=== PATIENT | female | born 1950 | race Native Hawaiian/Other Pacific Islander ===

== ENCOUNTER → 2017-03-01 | Outpatient (CLI) | payer OTHER ==
[~2017-03-01] MED LIST: ACET-24 PO; ASPEC81 PO; ASPI81TA28 PO; BRIM0.1S OPB; CLR10 PO; CYAN100020 PO; DOXYCYCLINE PO; GLUC1CAP35 PO; IRBESARTAN PO; KETO0.5S33 OP; LUTE40CA2 PO; LYSI1TAB12 PO; METROGEL TOP; MULT-506 PO; NABU500T3 PO; OMEG10007 PO; ONDA8TAB6 PO; PRD/25 PO; PRED1SUS3 OPR; RXC5 PO; SENNTAB23 PO; SIMV10TA2 PO; [UNRECOGNIZED DRUG - CODE] TOP
[2017-03-01 16:45] LABS: BASO % 0.5 %; BASO ABS # 0.03 K/uL (0-0.2); COMPLETE YES; EOS % 1.9 %; HEMATOCRIT 37.1 % (37-47); IG% 0.2 %; LYMPH % 15.2 %; LYMPH ABS # 0.94 K/uL (1.2-3.4); MEAN CELL VOLUME 91.6 fL (80-100); MEAN CORPUSCULAR HEMOGLOBIN 29.6 pg (25-34); MEAN CORPUSCULAR HGB CONC 32.3 g/dl (32-36); MEAN PLATELET VOLUME 9.8 fL (7.4-10.4); MONO % 6.6 %; NEUT % 75.6 %; PLATELET COUNT 288 K/uL (130-400); RED BLOOD COUNT 4.05 M/uL (4.2-5.4); WHITE BLOOD COUNT 6.18 K/uL (4.8-10.8)
[2017-03-01 18:58] LABS: SYNOVIAL FLUID COLOR RED
[2017-03-01 18:59] LABS: SYNOVIAL FLUID APPEARANCE BLOODY; SYNOVIAL FLUID MONONUC RELAT 33.4 %; SYNOVIAL FLUID POLYNUC RELAT 66.6 %
== END | disposition home or self-care (01) ==
LOC: C.LAB 14:44
PROVIDERS: ATTEND Physician Assistant Medical
DX: M00.062 Staphylococcal arthritis, left knee (principal)

== ENCOUNTER 2017-04-30 10:16 | Inpatient (IN) | payer OTHER ==
[2017-04-05 11:38] VITALS: BMI 23.0
--- NOTE | 2017-04-26 18:49 | History and Physical ---
History & Physical Date Apr 26, 2017. Chief Complaint LEFT KNEE PAIN History of Present Illness The patient is a 66 year old female with complaints of left knee pain for years. Has tried nsaids and PT. Also had injections with no relief. Pt cant do adls and is ready for left tka. Additional History Hepatic Disease: No Endocrine Disorder: No Kidney Disease: No Hypertension: Yes Heart Disease: No Bleeding Tendencies: No Infectious Diseases: No Allergies Coded Allergies: No Known Allergies (Unverified , 04/05/17) Home Medications Scheduled Aspirin (Aspirin Ec), 81 MG PO QAM Brimonidine Tartrate (Alphagan P Oph), 1 DROP OPB UD Cyanocobalamin (Vitamin B12), 1 TAB PO QAM Fish Oil (Keene-3), 1 CAP PO QAM Dawqgzhslix-Cssucrlbeto-Veo C- (Glucosamine Chondroitin), 1 CAP PO QAM Ketorolac Tromethamine (Ophth) (Acular Oph), 1 DROP OP BID Loratadine (Claritin), 10 MG PO QAM Lutein (Cvs Lutein), 1 CAP PO QAM Lysine HCl (Lysine), 1 TAB PO QAM Multivitamin (Multivitamin), 1 TAB PO QAM Nabumetone (Relafen), 500 MG PO BID Prednisolone Acetate (Ophth) (Pred Forte 1% Oph), 1 DROPS OPR BID Prednisone (Prednisone), 2.5 MG PO QAM Sennosides-Docusate Sodium (Stool Softener), 1 TAB PO DAILY Simvastatin (Zocor), 10 MG PO QPM Tretinoin (Retin-A), 1 DOSE TOP DAILY [Doxycycline], 50 MG PO DAILY [Irbesartan], 75 MG PO QAM [Metrogel], 1 DOSE TOP DAILY Physical Examination Skin: warm/dry, no rash Eyes: normal inspection, EOMI, sclerae normal ENT: normal ENT inspection, pharynx normal Head: normocephalic, atraumatic Neck: supple, no adenopathy, trachea midline Respiratory/Chest: lungs clear, normal breath sounds, no respiratory distress Cardiovascular: regular rate, rhythm, no edema, no murmur Abdomen / GI: normal bowel sounds, non tender Back: normal inspection Extremities: normal inspection, normal range of motion, + pertinent finding ( left knee is painful with rom. Pt has severe deformity and pain along joint line) Neurologic/Psych: no motor/sensory deficits, alert, normal reflexes, oriented x 3 Diagnosis DJD LEFT KNEE Plan of Treatment PLAN IS FOR LEFT TKA, HOME PT, ASA FOR DVT PROPHYLAXIS.
[2017-04-30] VITALS (7 sets, daily range): BP systolic 83–146; BP diastolic 45–77; PULSE 60–81; TEMP 36.4–36.8; O2SAT 97–100; Ht 162.6 cm; Wt 61.0 kg
[~2017-04-30] VITALS: Ht 162.6 cm; Wt 61.0 kg
[2017-04-30] MEDS: TRANEXAMIC ACID INJ 1,000 MG in SODIUM CHLORIDE 0.9% 100ML 100 ML IV SCH ×2 (06:00→06:30)
[~2017-04-30 10:16] MED LIST changes: -ACET-24 PO; +ACETAMINOPHEN 500 MG TAB PO SCH; -ASPEC81 PO; +BUPIVACAINE 0.25% 30 ML VIAL ONE; +BUPIVACAINE 0.5 % 5 MG/1 ML PF 10ML VIAL ONE; +CEFAZOLIN 1000MG/55 ML D5W 55 ML IV SCH; +CeleBREX 200 MG CAP PO SCH; +DEXAMETHASONE 4 MG TAB PO SCH; +EpINEphrine INJ 1MG/ML AMP 1 MG/ML AMP ONE; +FAMOTIDINE 20 MG TAB PO SCH; +LACTATED RINGER'S 1000ML 1,000 ML IV SCH; +LACTATED RINGER'S 1000ML 500 ML IV ONE; +LACTATED RINGER'S 1000ML IV SCH; +METOCLOPRAMIDE HCL 10 MG TAB PO SCH; -ONDA8TAB6 PO; +ROPIVACAINE 5MG/ML 30 ML 150 MG, BUPIVACAINE/EPINEPHR 0.5% MPF 30 ML, KETOROLAC TROMETH... INFIL SCH; -RXC5 PO
[2017-04-30] MEDS ORDERED: DEXAMETHASONE SOD INJ 4 MG/ML VIAL ONE (10:38)
[2017-04-30] MEDS ORDERED: MIDAZOLAM HCL 1 MG/ML 2ML VIAL ONE (11:59)
[2017-04-30] MEDS ORDERED: FENTANYL CITRATE INJ 50 MCG/1 ML 2 ML VIAL ONE (12:00)
[2017-04-30] MEDS ORDERED: PROPOFOL IV EMULSION 10 MG/ML 20 ML VIAL IV ONE ×2 (12:01)
[2017-04-30] MEDS ORDERED: LIDOCAINE HCL 2% 2 ML VIAL (20MG/ML) ONE ×2 (12:01→13:58)
--- NOTE | 2017-04-30 12:03 | History & Physical Bridge Note ---
H&P Re-Evaluation Bridge Note: I have examined the patient, reviewed the History & Physical and in the interval since the performance of the History & Physical I have noted the following changes of clinical significance: No changes noted
[2017-04-30] MEDS ORDERED: ORTHO JOINT ANESTHETIC ONE (12:38)
[2017-04-30] MEDS ORDERED: POVIDONE-IODINE OP SOLN 30 ML BTL ONE (12:38)
[2017-04-30] MEDS ORDERED: BACITRACIN 50000 UNIT VIAL ONE (12:39)
[2017-04-30] MEDS ORDERED: EpHEDrine SULFATE INJ 50 MG/ML AMP IV PRN (13:45)
[2017-04-30] MEDS ORDERED: ONDANSETRON INJ 2 MG/ML 2 ML VIAL IV PRN ×2 (13:45→14:15)
[2017-04-30] MEDS ORDERED: ATROPINE SULFATE 0.1 MG/ML 5ML SYR IV PRN (13:45)
[2017-04-30] MEDS ORDERED: FENTANYL CITRATE INJ 50 MCG/1 ML 2 ML VIAL IV PRN (13:45)
[2017-04-30] MEDS ORDERED: PROMETHAZINE HCL INJ 6.25 MG in SODIUM CHLORIDE 0.9% 50ML 50 ML IV PRN (13:45)
[2017-04-30] MEDS ORDERED: MAGNESIUM HYDROXIDE SUSP 30 ML UDC PO PRN (14:15)
[2017-04-30] MEDS ORDERED: SOD PHOSPHATE/SOD BIPHOSPHATE ENEMA 132 ML BTL PR PRN (14:15)
[2017-04-30] MEDS ORDERED: BISACODYL 10 MG SUPP PR PRN (14:15)
[2017-04-30] MEDS ORDERED: ALUMINUM/MAGNESIUM/SIMETH (MAALOX MAX) 30 ML UDC PO PRN (14:15)
[2017-04-30] MEDS ORDERED: ZOLPIDEM TARTRATE 5 MG TAB PO PRN (14:15)
--- NOTE | 2017-04-30 14:33 | [facility] Operative Report ---
Operative Report Operative Date Apr 30, 2017. Pre-Operative Diagnosis Left Knee Degenerative Joint Disease Post-Operative Diagnosis Left Knee Degenerative Joint Disease Procedure(s) Performed Left Total Knee Arthroplasty Surgeon Dr. Gregory Hernandez [employer] Teacher Surgeon(s) Pablo Lindsay PA-C Estimated Blood Loss 20ml Findings As above and preoperative range of motion was 15-110 Specimens Permanent : A. Left Knee Bone and Tissue Complication(s) None Disposition Recovery Room / PACU Description of Procedure IMPLANTS USED: Oxford triathlon posterior stabilized size 4 cemented femoral component, a size 3 universal base plate, size 9 PS insert with size 35 all polythene patella (For a Oxford knee) INDICATIONS: [Mrs. Troy ] is a pleasant (female) who has unfortunately failed all forms of conservative measures. Therefore, they have decided to undergo elective surgical intervention. All risks and benefits of the surgery were discussed with the patient and the family in entirety. PROCEDURE: The patient was brought to the operating room and properly identified by myself, anesthesia, and staff. Patient was given a spinal anesthesia and placed on the operating table in the supine position. Tourniquets were applied to the left upper thigh. The leg was then prepped and draped in usual sterile fashion. We made a standard midline approach over the patella and dissected down through the subcutaneous tissue to identify the capsule and performed a medial capsulotomy with the patella everted and the knee flexed. We then removed the spurs from around the femur and proximal tibia. I then put in a helicopter pilot instructor hole in the femur, put the IM cutting guide into place in approximately 5 degrees of valgus, and then the distal femoral cut was made. The femur measure to be a size #4. This was then put into place. We made the appropriate cuts and then placed a retractor behind the proximal tibia to retract anteriorly. We then placed the extramedullary cutting guide in place , made sure we had the appropriate varus and valgus alignment and appropriate slope, and the proximal tibia cut was made. It measured to be a size [#3]. A size [#3] guide was then put in place. We used the tibial punch then put the trial components into place. We had very good range of motion, excellent stability, and excellent patella tracking. We removed the trial components and irrigated the wound. We impacted the components in place using antibiotic cement. All excess cement was removed. We then irrigated the wound once more. We closed the capsule with 0 PDS suture, deep dermis with 2-0 Vicryl, and finally the skin with mandy. A sterile dressing was applied. The patient was taken to the recovery room in stable condition. Due to the complex nature of the procedure, the entire surgery was performed with the operational assistance of [the (GIOVANNI)]. The press operator assistant was under direct supervision, was involved in the actual performance of all aspects of the surgical procedure including hemostasis, tissue retraction and incision, instrument management, patient positioning, and wound closure. I attest to the content of the Intraoperative Record and any orders documented therein. Any exceptions are noted below.
[2017-04-30] MEDS ORDERED: EpHEDrine SULFATE 50MG/5ML SYR ONE (14:35)
--- NOTE | 2017-04-30 15:14 | Anesthesiology Progress Note ---
Anesthesia Post Op Note Date & Time Apr 30, 2017 at 15:13 Vital Signs Pain Intensity: 0 Vital Signs Past 12 Hours Date Time Temp Pulse Resp B/P (MAP) Pulse Ox O2 Delivery O2 Flow Rate FiO2 04/30/17 15:07 75 19 100 04/30/17 15:07 76 19 04/30/17 15:07 76 19 04/30/17 15:07 75 19 100 04/30/17 15:06 104/58 04/30/17 15:06 104/58 04/30/17 15:02 79 20 04/30/17 15:02 77 20 100 04/30/17 15:02 79 20 04/30/17 15:02 77 20 100 04/30/17 15:01 121/58 04/30/17 15:01 121/58 04/30/17 14:57 78 19 04/30/17 14:57 78 19 04/30/17 14:57 78 19 100 04/30/17 14:57 78 19 100 04/30/17 14:56 114/59 04/30/17 14:56 114/59 04/30/17 14:52 78 17 04/30/17 14:52 82 17 100 04/30/17 14:52 78 17 04/30/17 14:52 82 17 100 04/30/17 14:51 110/58 04/30/17 14:51 110/58 04/30/17 14:47 76 19 100 04/30/17 14:47 76 19 100 04/30/17 14:47 78 19 04/30/17 14:47 78 19 04/30/17 14:46 122/59 04/30/17 14:46 122/59 04/30/17 14:43 104/56 04/30/17 14:43 104/56 04/30/17 14:42 77 17 04/30/17 14:42 37.0 76 17 104/56 (64) 100 Mask 10 04/30/17 14:42 77 17 100 04/30/17 14:42 77 17 100 04/30/17 14:42 77 17 04/30/17 10:48 71 20 146/77 (100) 100 Room Air Notes Mental Status: alert / awake / arousable, participated in evaluation Pt Amnestic to Procedure: Yes Nausea / Vomiting: adequately controlled Pain: adequately controlled Airway Patency, RR, SpO2: stable & adequate BP & HR: stable & adequate Hydration State: stable & adequate Neuraxial Anesthesia: was administered, sensory block is resolving Anesthetic Complications: no major complications apparent
[2017-04-30] MEDS: SODIUM CHLORIDE 0.9% 1000ML 1,000 ML IV SCH (16:59)
--- NOTE | 2017-04-30 17:20 | Medical Consult ---
Consultation Date of Consultation: Apr 30, 2017. Attending Physician: Gregory Hernandez DO Reason for Consultation: Medical Management History of Present Illness Ms. Mayo is a 66 y/o female with PMHx of HTN, HLD, Heart Murmur, and Uveitis who is S/P L TKA on 04/30. She reports good control of her BP while on Irbesartan. She has had uveitis x 3 years and currently on Prednisone 2.5 mg daily which has been on hold x 1 week and will continue to be on hold x 2 weeks. The plan is to convert to Methotrexate as she has not been responding as planned with the Prednisone alone. She denies H/O cardiac disease including MD or CHF. Reports H/O superficial blood clots in legs after a porch swing fell on her but denies DVT/PE. She has never needed anticoagulation. Currently pain is well controlled, is hemodynamically stable, and tolerating a diet. Past Medical/Surgical History 1. HTN 2. HLD 3. Heart Murmur, Unknown Type 4. Chronic Uveitis Family History Hypertension Social History Smoking Status: Never Smoker Smokeless Tobacco Use: No Alcohol Use: none Drug Use: none Allergies Coded Allergies: No Known Allergies (Unverified , 04/05/17) Current Inpatient Medications Current Inpatient Medications Medications (Trade) Dose Ordered Sig/Charles Route Start Time Stop Time Status Last Admin Dose Admin Cefazolin Sodium 55 ml @ 100 mls/hr PREOP IV 04/30/17 06:00 04/30/17 18:00 Acetaminophen (Tylenol Tab) 1,000 mg PREOP PO 04/30/17 06:00 04/30/17 18:00 04/30/17 11:10 1,000 MG Celecoxib (CeleBREX CAP) 200 mg PREOP PO 04/30/17 06:00 04/30/17 18:00 04/30/17 11:08 200 MG Dexamethasone (Decadron Tab) 8 mg PREOP PO 04/30/17 06:00 04/30/17 18:00 04/30/17 11:09 8 MG Famotidine (Pepcid Tab) 20 mg PREOP PO 04/30/17 06:00 04/30/17 18:00 04/30/17 11:09 20 MG Metoclopramide HCl (Reglan Tab) 10 mg PREOP PO 04/30/17 06:00 04/30/17 18:00 04/30/17 11:10 10 MG Tranexamic Acid 1000 mg/Sodium Chloride 110 ml @ 660 mls/hr TODAY@06,0630 IV 04/30/17 06:00 04/30/17 18:00 Fentanyl Citrate (Fentanyl Inj) 50 mcg Q5M PRN IV 04/30/17 13:45 04/30/17 18:45 Ondansetron HCl (Zofran Inj) 4 mg ONE PRN IV 04/30/17 13:45 04/30/17 18:45 Promethazine HCl 6.25 mg/Sodium Chloride 50.25 ml @ 202 mls/hr ONE PRN IV 04/30/17 13:45 04/30/17 18:45 Ephedrine Sulfate (EpHEDrine SULFATE INJ) 5 mg Q5M PRN IV 04/30/17 13:45 04/30/17 18:45 Atropine Sulfate (Atropine Sulfate 0.1MG/Ml Inj) 0.5 mg Q1M PRN IV 04/30/17 13:45 04/30/17 18:45 Sodium Chloride 1,000 ml @ 100 mls/hr Q10H IV 04/30/17 16:00 05/01/17 15:59 04/30/17 16:59 100 MLS/HR Cefazolin Sodium 2000 mg/Dextrose 60 ml @ 100 mls/hr Q8H IV 04/30/17 21:00 05/01/17 05:35 Oxycodone HCl (Roxicodone Immediate Rel Tab) 1 TABLET FOR PAIN RATING... Q4H PRN PO 04/30/17 14:15 05/14/17 14:14 Acetaminophen (Tylenol Tab) 1,000 mg Q8H PO 04/30/17 20:00 05/30/17 19:59 Magnesium Hydroxide (Milk Of Magnesia Susp) 30 ml Q6H PRN PO 04/30/17 14:15 05/30/17 14:14 Bisacodyl (Dulcolax Supp) 10 mg DAILY PRN DE 04/30/17 14:15 05/30/17 14:14 Sodium Biphosphate/ Sodium Phosphate (Fleet Enema) 132 ml DAILY PRN DE 04/30/17 14:15 05/30/17 14:14 Docusate Sodium (coLACE CAP) 100 mg BID PO 04/30/17 21:00 05/30/17 20:59 Diphenhydramine HCl (Benadryl Cap) 25 mg Q8H PRN PO 04/30/17 14:15 05/30/17 14:14 Al Hydrox/Mg Hydrox/Simethicone (Maalox Max Susp) 15 ml Q4H PRN PO 04/30/17 14:15 05/30/17 14:14 Zolpidem Tartrate (Ambien Tab) 5 mg HSZ PRN PO 04/30/17 14:15 05/30/17 14:14 Ondansetron HCl (Zofran Inj) 4 mg Q6H PRN IV 04/30/17 14:15 05/30/17 14:14 Tranexamic Acid 1000 mg/Sodium Chloride 110 ml @ 660 mls/hr Q6H IV 04/30/17 21:15 04/30/17 21:24 Dexamethasone Sodium Phosphate 10 mg/Syringe 2.5 ml @ 1 mls/min 0730 IV 05/01/17 07:30 05/01/17 07:33 Aspirin (Ecotrin Tab) 81 mg BID PO 04/30/17 21:00 05/30/17 20:59 Ketorolac Tromethamine (Acular 0.5 Oph Soln) 1 drops BID OP 04/30/17 21:00 05/30/17 20:59 Loratadine (Claritin Tab) 10 mg QAM PO 05/01/17 09:00 05/31/17 08:59 Multivitamins (Multivitamin Tab) 1 tab QAM PO 05/01/17 09:00 05/31/17 08:59 Prednisolone Acetate (Pred Forte 1% Oph Susp) 1 drops BID OPR 04/30/17 21:00 05/30/17 20:59 Simvastatin (Zocor Tab) 10 mg QPM PO 04/30/17 21:00 05/30/17 20:59 Miscellaneous Information (Order Awaiting Action) 1 ea QS N/A 05/01/17 00:00 05/31/17 00:00 Miscellaneous Information (Order Awaiting Action) 1 ea QS N/A 05/01/17 00:00 05/31/17 00:00 Irbesartan (Avapro Tab) 75 mg QAM PO 05/01/17 09:00 05/31/17 08:59 Review of Systems Constitutional: No fever, No chills Eyes: No worsening of vision ENT: No nasal symptoms, No sore throat, No trouble swallowing Respiratory: No cough, No shortness of breath Cardiovascular: No chest pain, No palpitations Abdomen: No pain, No nausea, No vomiting, No diarrhea, No constipation Musculoskeletal: No swelling, No calf pain Genitourinary - Female: No dysuria Hematologic / Lymphatic: No abnormal bleeding/bruising, No clotting problems Physical Exam Date Time Temp Pulse Resp B/P (MAP) Pulse Ox O2 Delivery O2 Flow Rate FiO2 04/30/17 16:46 36.8 73 18 114/74 (87) 100 Nasal Cannula 2.0 04/30/17 16:11 36.5 81 18 108/66 (80) 100 2.0 04/30/17 15:29 86 19 100 04/30/17 15:29 82 19 04/30/17 15:26 115/60 04/30/17 15:24 76 19 100 04/30/17 15:24 78 19 04/30/17 15:21 113/58 04/30/17 15:19 78 15 04/30/17 15:19 78 15 100 04/30/17 15:18 75 19 04/30/17 15:18 75 19 100 04/30/17 15:16 111/62 04/30/17 15:14 36.8 76 19 111/62 (71) 100 Mask 2 04/30/17 15:13 81 21 04/30/17 15:13 86 21 100 04/30/17 15:11 112/61 04/30/17 15:08 74 20 04/30/17 15:08 74 20 100 04/30/17 15:07 75 19 100 04/30/17 15:07 76 19 04/30/17 15:07 76 19 04/30/17 15:07 75 19 100 04/30/17 15:06 104/58 04/30/17 15:06 104/58 04/30/17 15:02 79 20 04/30/17 15:02 77 20 100 04/30/17 15:02 79 20 04/30/17 15:02 77 20 100 04/30/17 15:01 121/58 04/30/17 15:01 121/58 04/30/17 14:57 78 19 04/30/17 14:57 78 19 04/30/17 14:57 78 19 100 04/30/17 14:57 78 19 100 04/30/17 14:56 114/59 04/30/17 14:56 114/59 04/30/17 14:52 78 17 04/30/17 14:52 82 17 100 04/30/17 14:52 78 17 04/30/17 14:52 82 17 100 04/30/17 14:51 110/58 04/30/17 14:51 110/58 04/30/17 14:47 76 19 100 04/30/17 14:47 76 19 100 04/30/17 14:47 78 19 04/30/17 14:47 78 19 04/30/17 14:46 122/59 04/30/17 14:46 122/59 04/30/17 14:43 104/56 04/30/17 14:43 104/56 04/30/17 14:42 77 17 04/30/17 14:42 37.0 76 17 104/56 (64) 100 Mask 10 04/30/17 14:42 77 17 100 04/30/17 14:42 77 17 100 04/30/17 14:42 77 17 04/30/17 10:48 71 20 146/77 (100) 100 Room Air General Appearance: WD/WN, no apparent distress Head: normocephalic, atraumatic Eyes: sclerae normal ENT: hearing grossly normal Neck: supple, no JVD, trachea midline Respiratory/Chest: lungs clear, normal breath sounds, no respiratory distress, no accessory muscle use Cardiovascular: regular rate, rhythm Abdomen/GI: normal bowel sounds, non tender, soft Extremities/Musculoskelatal: no calf tenderness, normal capillary refill, no pedal edema, + pertinent finding (LLE with LUCAS wrap C/D/I) Neurologic/Psych: alert, oriented x 3 Skin: normal color, warm/dry Assessment & Plan Ms. Mayo is a 66 y/o female with PMHx of HTN, HLD, Heart Murmur, and Uveitis who is S/P L TKA on 04/30 S/P L TKA on 04/30: - Pain management, IVF, PT/OT, DVT prophylaxis per primary - DVT prophylaxis - ASA 81 mg BID HTN: CONTROLLED - Hold Irbesartan 75 mg daily and assess renal function in AM - can resume if normal HLD: - Zocor 10 mg daily Heart Murmur: - Is unable to state what type - reports she has 2 different types - has routine echos and monitoring by PCP Chronic Uveitis - B/L: - Prednisone 2.5 mg daily on hold x 1 week and reports she is to hold x 2 more weeks - plan to go to Methotrexate as Prednisone with limited effect .Attending Addendum: I have physically seen this patient, have directed the physician assistants medical activities, and agree with the H&P as noted above with the following exceptions as noted. Assessment and Plan: Status post left total knee arthroplasty on 04/30: Seen postoperatively is medically stable. Hypertension-- Hold irbesartan as noted above. Hydralazine 10 mg IV every 4 hours when necessary systolic blood pressure greater than 160. Hyperlipidemia-- Continue simvastatin 10 mg by mouth daily. Heart murmur-- This is a known entity and followed in the outpatient setting by her PCP. Chronic bilateral uveitis-- For outpatient management. She has been on prednisone chronically, may need to be monitored for adrenal insufficiency.
[2017-04-30] MEDS ORDERED: HydrALAZINE HCL 20 MG/ML VIAL IV. PRN (17:30)
[2017-04-30] MEDS: ACETAMINOPHEN 500 MG TAB PO SCH (20:30)
[2017-04-30] MEDS ORDERED: SIMVASTATIN 10 MG TAB PO SCH (21:00)
[2017-04-30] MEDS: ASPIRIN 81 MG ECTAB PO SCH (21:04)
[2017-04-30] MEDS: DOCUSATE SODIUM 100 MG CAP PO SCH (21:04)
[2017-04-30] MEDS: PrednisoLONE ACET 1% OP SUSP 5 ML BTL OPR SCH (21:05)
[2017-04-30] MEDS: KETOROLAC 0.5% OP SOLN 3 ML BTL OP SCH (21:05)
[2017-04-30] MEDS ORDERED: TRANEXAMIC ACID INJ 1,000 MG in SODIUM CHLORIDE 0.9% 100ML 100 ML IV SCH (21:15)
[2017-04-30] MEDS: CEFAZOLIN IV 2,000 MG in DEXTROSE 5% 50ML 50 ML IV SCH (21:56)
[2017-04-30] MEDS: BRIMONIDINE TARTRATE 0.2% OPB SCH (22:30)
[2017-05-01] MEDS: SODIUM CHLORIDE 0.9% 1000ML 1,000 ML IV SCH ×2 (00:07→04:17)
[2017-05-01 03:44] VITALS: BP 114/63; PULSE 73; TEMP 36.6; O2SAT 95
[2017-05-01] MEDS: ACETAMINOPHEN 500 MG TAB PO SCH ×2 (04:17→11:44)
[2017-05-01] MEDS: CEFAZOLIN IV 2,000 MG in DEXTROSE 5% 50ML 50 ML IV SCH (04:24)
[2017-05-01 06:09] LABS: MEAN CELL VOLUME 89.2 fL (80-100); MEAN CORPUSCULAR HEMOGLOBIN 29.2 pg (25-34); MEAN CORPUSCULAR HGB CONC 32.8 g/dl (32-36); MEAN PLATELET VOLUME 9.3 fL (7.4-10.4); PLATELET COUNT 197 K/uL (130-400); RED BLOOD COUNT 3.25 M/uL (4.2-5.4); WHITE BLOOD COUNT 10.28 K/uL (4.8-10.8)
[2017-05-01 06:39] LABS: BUN/CREATININE RATIO 26.2 (10-20); CALCIUM 8.3 mg/dl (8.5-10.1); CREATININE 0.59 mg/dl (0.60-1.20); POTASSIUM 3.8 mmol/L (3.5-5.1)
[2017-05-01] MEDS ORDERED: DEXAMETHASONE INJ 10 MG in SYRINGE 0 ML IV SCH (07:30)
--- NOTE | 2017-05-01 07:52 | Anesthesiology Progress Note ---
Anesthesia Post Op Note Date & Time May 01, 2017 at 07:52 Vital Signs Pain Intensity: 0.0 Vital Signs Past 12 Hours Date Time Temp Pulse Resp B/P (MAP) Pulse Ox O2 Delivery O2 Flow Rate FiO2 05/01/17 03:44 36.6 73 16 114/63 (80) 95 Room Air 04/30/17 23:55 Room Air 04/30/17 23:15 36.4 60 18 87/46 (60) 99 Room Air 83/45 (58) Notes Mental Status: alert / awake / arousable, participated in evaluation Pt Amnestic to Procedure: Yes Nausea / Vomiting: adequately controlled Pain: adequately controlled Airway Patency, RR, SpO2: stable & adequate BP & HR: stable & adequate Hydration State: stable & adequate Neuraxial Anesthesia: sensory block resolved Anesthetic Complications: no major complications apparent
--- NOTE | 2017-05-01 08:04 | Orthopedic Progress Note ---
Orthopedic Progress Note Date of Service May 01, 2017. Subjective Post OP Day: 1 Reports: feeling well, Denies: chest pain, SOB, nausea / vomiting, light headedness, calf pain Objective calves soft nontender, N/V intact, capillary refill less than 2 sec., dressing C /D/I, A&O x3, toes mobile Date Time Temp Pulse Resp B/P (MAP) Pulse Ox O2 Delivery O2 Flow Rate FiO2 05/01/17 03:44 36.6 73 16 114/63 (80) 95 Room Air 04/30/17 23:55 Room Air 04/30/17 23:15 36.4 60 18 87/46 (60) 99 Room Air 83/45 (58) 04/30/17 19:09 36.4 61 18 91/54 (66) 97 Room Air 04/30/17 17:50 36.7 78 18 103/61 (75) 97 Room Air 04/30/17 16:46 36.8 73 18 114/74 (87) 100 Nasal Cannula 2.0 04/30/17 16:11 36.5 81 18 108/66 (80) 100 2.0 04/30/17 15:40 Room Air 04/30/17 15:40 36.8 77 16 108/66 04/30/17 15:40 99 Nasal Cannula 2.0 04/30/17 15:40 Room Air 04/30/17 15:29 86 19 100 04/30/17 15:29 82 19 04/30/17 15:26 115/60 04/30/17 15:24 76 19 100 04/30/17 15:24 78 19 04/30/17 15:21 113/58 04/30/17 15:19 78 15 04/30/17 15:19 78 15 100 04/30/17 15:18 75 19 04/30/17 15:18 75 19 100 04/30/17 15:16 111/62 04/30/17 15:14 36.8 76 19 111/62 (71) 100 Mask 2 04/30/17 15:13 81 21 04/30/17 15:13 86 21 100 04/30/17 15:11 112/61 04/30/17 15:08 74 20 04/30/17 15:08 74 20 100 04/30/17 15:07 75 19 100 04/30/17 15:07 76 19 04/30/17 15:07 76 19 04/30/17 15:07 75 19 100 04/30/17 15:06 104/58 04/30/17 15:06 104/58 04/30/17 15:02 79 20 04/30/17 15:02 77 20 100 04/30/17 15:02 79 20 04/30/17 15:02 77 20 100 04/30/17 15:01 121/58 04/30/17 15:01 121/58 04/30/17 14:57 78 19 04/30/17 14:57 78 19 04/30/17 14:57 78 19 100 04/30/17 14:57 78 19 100 04/30/17 14:56 114/59 04/30/17 14:56 114/59 04/30/17 14:52 78 17 04/30/17 14:52 82 17 100 04/30/17 14:52 78 17 04/30/17 14:52 82 17 100 04/30/17 14:51 110/58 04/30/17 14:51 110/58 04/30/17 14:47 76 19 100 04/30/17 14:47 76 19 100 04/30/17 14:47 78 19 04/30/17 14:47 78 19 04/30/17 14:46 122/59 04/30/17 14:46 122/59 04/30/17 14:43 104/56 04/30/17 14:43 104/56 04/30/17 14:42 77 17 04/30/17 14:42 37.0 76 17 104/56 (64) 100 Mask 10 04/30/17 14:42 77 17 100 04/30/17 14:42 77 17 100 04/30/17 14:42 77 17 04/30/17 10:48 71 20 146/77 (100) 100 Room Air Laboratory Results 24 Hours: Test 05/01/17 05:41 Hematocrit 29.0 % Hemoglobin 9.5 g/dL Assessment & Plan Assessment: POD#1 SP LEFT TKA Plan: PT/OT DVT PROPH- ASA 81MG BID, FOOT PUMPS PAIN MANAGEMENT- JO AND TYLENOL MEDICAL MANAGEMENT DC PLANNING- LIKELY DC HOME TODAY WITH HOME PT.
[2017-05-01] MEDS ORDERED: ONDA8TAB6 PO (08:06)
[2017-05-01] MEDS ORDERED: ACET-24 PO (08:06)
[2017-05-01] MEDS ORDERED: ASPEC81 PO (08:06)
[2017-05-01] MEDS ORDERED: RXC5 PO (08:06)
--- NOTE | 2017-05-01 08:07 | Discharge Instructions ---
Discharge Instructions Date of Service May 01, 2017. Admission Reason for Admission: Left Knee Osteoarthritis Discharge Discharge Diagnosis / Problem: SP LEFT TKA Discharge Goals Goal(s): Decrease discomfort, Improve function, Increase independence Activity Recommendations Activity Limitations: per Instructions/Follow-up section . Instructions / Follow-Up Instructions / Follow-Up ACTIVITY RECOMMENDATIONS: SELF CARE INSTRUCTIONS AFTER TOTAL KNEE REPLACEMENT A. You may need to continue a physical therapy program after discharge from the hospital. There are several options available to you. Your doctor will assist you in selecting the best one for you. 1. An out-patient facility 2 to 3 times a week for therapy or home therapy. 2. Continue working on all exercises taught to you in the hospital. Your goals should be to increase bending of your knee to 90 degrees and beyond and to fully straighten your knee. B. You may progress at your own pace from walking with a walker or crutches to a cane; then to no assistive devices. C. Make walking a part of your daily routine. Be up as much as comfortable with rest periods throughout the day. Rest with leg elevation is very important. Use the ice wrap frequently for the first 3-4 weeks. D. There are no restrictions on activities. You may ride in a car, shop, participate in production line worker and all social activities. E. Wear the long elastic stockings (NOAH hose) 20 hours a day for 2 weeks after surgery. They can be removed several times a day for laundering and for a bath. F. You may shower, no tub baths until cleared by your doctor. SPECIAL CARE INSTRUCTIONS: VERY IMPORTANT TO READ AND REVIEW A. There are a few signs you need to watch for after you are home. Call [facility] if you notice any of the followin. Increased severe knee pain. Some pain is expected especially when you exercise. 2. Increased swelling in your leg or knee; pain or swelling of the calf muscle in either lower leg. 3. Any fluid drainage from the incision. 4. Shortness of breath or chest pain. B. Please call [facility] at if you have any concerns or questions about your operation or recovery. The doctor or his nurse will return your call promptly. C. You must take antibiotics before dental work, bladder, bowel or other surgery. Your doctor will provide you with a permanent care to carry describing this precaution. IMPORTANT: * REMEMBER TO TAKE ASPIRIN, 81 MG, TWICE DAILY FOR 4 WEEKS UNLESS OTHERWISE DIRECTED. THIS IS YOUR BLOOD THINNER. * HIGH RISK PATIENTS MAY BE PRESCRIBED A STRONGER BLOOD THINNER. THIS WILL BE PROVIDED AT DISCHARGE. * CALL IF INCREASED PAIN, REDNESS, DRAINAGE OR FEVER GREATER THAT 101. * WEAR NOAH HOSE 20 HOURS PER DAY FOR 2 WEEKS. Standard mandy/no adhesive- Please keep incision clean and dry. You may shower. Mandy should be removed in 10-14 days at the office. This appointment is likely already scheduled for you. Please call if any increased redness, drainage, or swelling. FOLLOW UP VISIT: If appointment is not already scheduled: Please call [facility] to make a follow-up appointment for 2 weeks after your surgery at . Current Hospital Diet Patient's current hospital diet: Regular Diet Discharge Diet Recommended Diet: Regular Diet Procedures Procedures Performed: Left Total Knee Arthroplasty Pending Studies Studies pending at discharge: no Medical Emergencies . Who to Call and When: Medical Emergencies: If at any time you feel your situation is an emergency, please call 911 immediately. . Non-Emergent Contact Non-Emergency issues call your: Surgeon . "Provider Documentation" section prepared by Emilia Hernádnez. . VTE Core Measure Inpt VTE Proph given/why not?: Other Anticoagulation, SCD's [place] Drug Monitoring Program Search Results: patient reviewed within database, no issues identified
[2017-05-01 08:44] VITALS: BP 120/71; PULSE 52; TEMP 36.7; O2SAT 100
[2017-05-01] MEDS ORDERED: LUTEIN PO SCH (09:00)
[2017-05-01] MEDS ORDERED: LORATADINE 10 MG TAB PO SCH (09:00)
[2017-05-01] MEDS ORDERED: IRBESARTAN 75 MG TAB PO SCH (09:00)
[2017-05-01] MEDS ORDERED: MULTIVITAMIN TAB PO SCH (09:00)
[2017-05-01] MEDS ORDERED: LYSINE HCL PO SCH (09:00)
[2017-05-01] MEDS: OXYCODONE HCL IR 5 MG TAB (IMMEDIATE RELEASE) PO PRN ×2 (09:26→13:42)
[2017-05-01] MEDS: DOCUSATE SODIUM 100 MG CAP PO SCH (09:27)
[2017-05-01] MEDS: ASPIRIN 81 MG ECTAB PO SCH (09:27)
[2017-05-01] MEDS: PrednisoLONE ACET 1% OP SUSP 5 ML BTL OPR SCH (09:29)
[2017-05-01] MEDS: BRIMONIDINE TARTRATE 0.2% OPB SCH (09:29)
[2017-05-01] MEDS: KETOROLAC 0.5% OP SOLN 3 ML BTL OP SCH (09:29)
--- NOTE | 2017-05-01 09:34 | Clinical Documentation Query ---
CLINICAL DOCUMENTATION QUERY A 66 y/o female with PMHx of HTN, HLD, Heart Murmur, and Uveitis who is S/P L TKA on 04/30. In your clinical opinion is this patient being managed for: (x ) Acute blood loss anemia - Probable but limited labs to confirm - will not be able to document further as I was just during the initial consultation ( ) Not Agree ( ) Other explanation of clinical findings (Please Explain) ( ) Unable to determine (Please Define) ( ) Need to Discuss The medical record reflects the following clinical findings, treatment, and risk factors. Clinical Indicators: H&H 9.5/29.0 Treatment: IV fluids, I&O, type/screen Risk Factors: s/p surgical event Please clarify and document your clinical opinion in the progress notes and discharge summary. Terms such as "probable", "suspected", "likely", "questionable", "possible", or "still to be ruled out" are acceptable. IF IN AGREEMENT, YOU MUST DOCUMENT ABOVE DIAGNOSTIC STATEMENT IN DAILY PROGRESS NOTES AND DISCHARGE SUMMARY. This document is not part of the patient's record. Thank You, Mini Adhikari RN [phone]
[2017-05-01 10:21] VITALS: BP 111/71; PULSE 61; O2SAT 100
--- NOTE | 2017-05-01 10:22 | Hospitalist Progress Note ---
Hospitalist Progress Note Date of Service May 01, 2017. (Niya Prieto ., PA-C) Subjective Pt evaluation today including: conversation w/ patient, conversation w/ family ( at bedside ), physical exam, lab review, review of studies, review of inpatient medication list Voiding: no voiding problems Patient feeling well. Sitting in bedside chair. Just finished w/ PT. No significant difficulty. Pain is well controlled. Eating and drinking OK. +flatus postop, no BM. Patient denies any fever, chills, sweats, lightheadedness, dizziness, vision changes, CP, palpitations, edema, SOB, wheezing, cough, abdominal pain, nausea, vomiting, diarrhea, urinary symptoms, melena, numbness/tingling, weakness, anxiety/depression, active bleeding, or new skin discoloration/changes. (Niya Prieto ., PA-C) Medications Current Inpatient Medications Medications (Trade) Dose Ordered Sig/Charles Route Start Time Stop Time Status Last Admin Dose Admin Sodium Chloride 1,000 ml @ 100 mls/hr Q10H IV 04/30/17 16:00 05/01/17 15:59 05/01/17 04:17 100 MLS/HR Oxycodone HCl (Roxicodone Immediate Rel Tab) 1 TABLET FOR PAIN RATING... Q4H PRN PO 04/30/17 14:15 05/14/17 14:14 05/01/17 09:26 10 MG Acetaminophen (Tylenol Tab) 1,000 mg Q8H PO 04/30/17 20:00 05/30/17 19:59 05/01/17 04:17 1,000 MG Magnesium Hydroxide (Milk Of Magnesia Susp) 30 ml Q6H PRN PO 04/30/17 14:15 05/30/17 14:14 Bisacodyl (Dulcolax Supp) 10 mg DAILY PRN [place] 04/30/17 14:15 05/30/17 14:14 Sodium Biphosphate/ Sodium Phosphate (Fleet Enema) 132 ml DAILY PRN [place] 04/30/17 14:15 05/30/17 14:14 Docusate Sodium (coLACE CAP) 100 mg BID PO 04/30/17 21:00 05/30/17 20:59 05/01/17 09:27 100 MG Diphenhydramine HCl (Benadryl Cap) 25 mg Q8H PRN PO 04/30/17 14:15 05/30/17 14:14 Al Hydrox/Mg Hydrox/Simethicone (Maalox Max Susp) 15 ml Q4H PRN PO 04/30/17 14:15 05/30/17 14:14 Zolpidem Tartrate (Ambien Tab) 5 mg HSZ PRN PO 04/30/17 14:15 05/30/17 14:14 Ondansetron HCl (Zofran Inj) 4 mg Q6H PRN IV 04/30/17 14:15 05/30/17 14:14 Aspirin (Ecotrin Tab) 81 mg BID PO 04/30/17 21:00 05/30/17 20:59 05/01/17 09:27 81 MG Ketorolac Tromethamine (Acular 0.5 Oph Soln) 1 drops BID OP 04/30/17 21:00 05/30/17 20:59 05/01/17 09:29 1 DROPS Loratadine (Claritin Tab) 10 mg QAM PO 05/01/17 09:00 05/31/17 08:59 05/01/17 09:27 10 MG Multivitamins (Multivitamin Tab) 1 tab QAM PO 05/01/17 09:00 05/31/17 08:59 05/01/17 09:27 1 TAB Prednisolone Acetate (Pred Forte 1% Oph Susp) 1 drops BID OPR 04/30/17 21:00 05/30/17 20:59 05/01/17 09:29 1 DROPS Simvastatin (Zocor Tab) 10 mg QPM PO 04/30/17 21:00 05/30/17 20:59 04/30/17 21:04 10 MG Miscellaneous Information (Order Awaiting Action) 1 ea QS N/A 05/01/17 00:00 05/31/17 00:00 Hydralazine HCl (HydrALAZINE INJ) 10 mg Q6 PRN IV. 04/30/17 17:30 05/30/17 17:29 Brimonidine Tartrate (Alphagan 0.2% Soln) 1 drops BID OPB 04/30/17 22:00 05/30/17 21:59 05/01/17 09:29 1 DROPS (Niya Prieto PA-C) Objective Vital Signs Date Time Temp Pulse Resp B/P (MAP) Pulse Ox O2 Delivery O2 Flow Rate FiO2 05/01/17 07:55 Room Air 05/01/17 03:44 36.6 73 16 114/63 (80) 95 Room Air 04/30/17 23:55 Room Air 04/30/17 23:15 36.4 60 18 87/46 (60) 99 Room Air 83/45 (58) 04/30/17 19:09 36.4 61 18 91/54 (66) 97 Room Air 04/30/17 17:50 36.7 78 18 103/61 (75) 97 Room Air 04/30/17 16:46 36.8 73 18 114/74 (87) 100 Nasal Cannula 2.0 04/30/17 16:11 36.5 81 18 108/66 (80) 100 2.0 04/30/17 15:40 Room Air 04/30/17 15:40 36.8 77 16 108/66 04/30/17 15:40 99 Nasal Cannula 2.0 04/30/17 15:40 Room Air 04/30/17 15:29 86 19 100 04/30/17 15:29 82 19 04/30/17 15:26 115/60 04/30/17 15:24 76 19 100 04/30/17 15:24 78 19 04/30/17 15:21 113/58 04/30/17 15:19 78 15 04/30/17 15:19 78 15 100 04/30/17 15:18 75 19 04/30/17 15:18 75 19 100 04/30/17 15:16 111/62 04/30/17 15:14 36.8 76 19 111/62 (71) 100 Mask 2 04/30/17 15:13 81 21 04/30/17 15:13 86 21 100 04/30/17 15:11 112/61 04/30/17 15:08 74 20 04/30/17 15:08 74 20 100 04/30/17 15:07 75 19 100 04/30/17 15:07 76 19 04/30/17 15:07 76 19 04/30/17 15:07 75 19 100 04/30/17 15:06 104/58 04/30/17 15:06 104/58 04/30/17 15:02 79 20 04/30/17 15:02 77 20 100 04/30/17 15:02 79 20 04/30/17 15:02 77 20 100 04/30/17 15:01 121/58 04/30/17 15:01 121/58 04/30/17 14:57 78 19 04/30/17 14:57 78 19 04/30/17 14:57 78 19 100 04/30/17 14:57 78 19 100 04/30/17 14:56 114/59 04/30/17 14:56 114/59 04/30/17 14:52 78 17 04/30/17 14:52 82 17 100 04/30/17 14:52 78 17 04/30/17 14:52 82 17 100 04/30/17 14:51 110/58 04/30/17 14:51 110/58 04/30/17 14:47 76 19 100 04/30/17 14:47 76 19 100 04/30/17 14:47 78 19 04/30/17 14:47 78 19 04/30/17 14:46 122/59 04/30/17 14:46 122/59 04/30/17 14:43 104/56 04/30/17 14:43 104/56 04/30/17 14:42 77 17 04/30/17 14:42 37.0 76 17 104/56 (64) 100 Mask 10 04/30/17 14:42 77 17 100 04/30/17 14:42 77 17 100 04/30/17 14:42 77 17 04/30/17 10:48 71 20 146/77 (100) 100 Room Air (Niya Prieto PA-C) Physical Exam General Appearance: no apparent distress Eyes: normal inspection, PERRL ENT: hearing grossly normal Neck: supple Respiratory/Chest: lungs clear, no respiratory distress, no accessory muscle use Cardiovascular: regular rate, rhythm, + systolic murmur Abdomen: normal bowel sounds, non tender, soft Extremities: no pedal edema, no calf tenderness, + pertinent finding (L knee in LUCAS wrap) Neurologic/Psychiatric: no motor/sensory deficits, alert, normal mood/affect, oriented x 3 Skin: normal color, warm/dry, no rash (Niya Prieto PA-C) Laboratory Results Last 24 Hours Test 05/01/17 05:41 05/01/17 08:17 White Blood Count 10.28 K/uL Red Blood Count 3.25 M/uL Hemoglobin 9.5 g/dL Hematocrit 29.0 % Mean Corpuscular Volume 89.2 fL Mean Corpuscular Hemoglobin 29.2 pg Mean Corpuscular Hemoglobin Concent 32.8 g/dl RDW Standard Deviation 42.8 fL RDW Coefficient of Variation 13.0 % Platelet Count 197 K/uL Mean Platelet Volume 9.3 fL Sodium Level 143 mmol/L Potassium Level 3.8 mmol/L Chloride Level 114 mmol/L Carbon Dioxide Level 23 mmol/L Anion Gap 6.0 mmol/L Blood Urea Nitrogen 15 mg/dl Creatinine 0.59 mg/dl Est Creatinine Clear Calc Drug Dose 82.1 ml/min Estimated GFR () 111.5 Estimated GFR (Non- 96.2 BUN/Creatinine Ratio 26.2 Random Glucose 113 mg/dl Calcium Level 8.3 mg/dl (Niya Prieto, PA-C) Assessment and Plan Ms. Mayo is a 66 y/o female with PMHx of HTN, HLD, Heart Murmur, and Uveitis who is S/P L TKA on 04/30 s/p L TKA on 04/[address] Hernandez: - Pain management, IVF, PT/OT, DVT prophylaxis per primary - DVT prophylaxis- ASA 81 mg BID - Encouraged incentive spirometer - Postop labs- STABLE HTN: Held Irbesartan 75 mg daily until postop labs reviewed- resume HLD: Zocor 10 mg daily Heart Murmur: Has routine ECHOs and monitoring by PCP Chronic Uveitis - B/L: Prednisone 2.5 mg daily on hold x 1 week and reports she is to hold x 2 more weeks- plan to go to Methotrexate as Prednisone with limited effect Code Status: LEVEL I, FULL Dispo: Discharge to home w/ HHS as per primary team (Niya Prieto, PA-C) I agree with the above progress note. I examined patient and discussed case and plan with patient and APC. My physical exam did not vary from APC's exam of patient. (Daniel Lopez M.D.)
[2017-05-01 10:52] VITALS: BP 120/71; PULSE 52; TEMP 36.7; O2SAT 100
--- NOTE | 2017-05-03 15:36 | DISCHARGE SUMMARY ---
DISCHARGE DIAGNOSIS: Degenerative joint disease, left knee. SECONDARY DIAGNOSES: Hypertension, hyperlipidemia, heart murmur, and history of chronic ileitis. CONSULTS: Steffany Moseley PA-C/Bola Parada MD COMPLICATIONS: None. PROCEDURES: Left total knee arthroplasty performed by Dr. Hernandez on 04/30/2017. BRIEF HISTORY: As dictated in the history and physical. HOSPITAL SUMMARY: The patient was admitted on the above date and had the above-noted surgery performed, which she tolerated well. Postoperatively, [facility] hospitalists were consulted for postoperative medical management and continued to follow the patient during her stay. On her first postoperative day, the patient was feeling well and denied chest pain. No shortness of breath, nausea, or vomiting. Calves were soft and nontender. Neurovascularly intact. Capillary refill is less than 2 seconds. Dressings clean, dry and intact. Toes were mobile. Vital signs were stable and the patient was afebrile. Hemoglobin was 9.5. PT and OT were started and the patient was continued on pain management, DVT prophylaxis and medical management. Later on that afternoon, the patient was progressing well with the physical therapy and was remaining medically stable and it was felt that she could be discharged to home. For further review, please see chart. LAB AND X-RAY DATA: As per chart. DISCHARGE INSTRUCTIONS: The patient was discharged to home in satisfactory condition on 05/01/2017. DIET: Regular. ACTIVITY: Follow TK instruction sheets and special care instructions as noted and follow up with Dr. Hernandez in 2 weeks. The patient is to call for an appointment if one has not been made for you. DISCHARGE MEDICATIONS: Acetaminophen 1000 mg p.o. q. 8 hours, aspirin 81 mg p.o. b.i.d., Zofran 8 mg p.o. q. 8 hours p.r.n. nausea, and oxycodone 5-10 mg p.o. q. 4 hours p.r.n. Resume home meds as listed and stop taking Relafen.
== END 2017-05-01 14:15 | disposition home health service (06) | DRG 470 ==
LOC: C.ACU 10:16 → C.3E 13:20 → ENRESERV 15:07
PROVIDERS: ADMIT Orthopaedic Surgery; ATTEND Orthopaedic Surgery
PROC: 0SRD0J9 Replacement of Left Knee Joint with Synthetic Substitute, Cemented, Open Approach (ICD-10-PCS; principal; 2017-04-30 13:00)
DX: M17.12 Unilateral primary osteoarthritis, left knee (principal); Z79.82 Long term (current) use of aspirin; Z79.899 Other long term (current) drug therapy; Z79.52 Long term (current) use of systemic steroids; I10 Essential (primary) hypertension; E78.5 Hyperlipidemia, unspecified; H20.13 Chronic iridocyclitis, bilateral

== ENCOUNTER 2017-08-27 09:41 | Inpatient (IN) | payer OTHER ==
[2017-08-09 14:19] VITALS: BMI 23.0
--- NOTE | 2017-08-25 08:03 | History and Physical ---
History & Physical Date Aug 25, 2017. Chief Complaint right knee pain History of Present Illness The patient is a 67 year old female with complaints of right knee pain for years. I just perfomred her other tka and doing very well. Shes now ready for right tka. Past Medical/Surgical History Medical Problems: (1) Rheumatoid arthritis involving left knee Additional History Hepatic Disease: No Endocrine Disorder: No Kidney Disease: No Hypertension: Yes Heart Disease: No Bleeding Tendencies: No Infectious Diseases: No Allergies Coded Allergies: Benzoyl Peroxide (Verified Allergy, Intermediate, hives, 08/22/17) Home Medications Scheduled Aspirin (Aspirin Ec), 81 MG PO QAM Brimonidine Tartrate (Alphagan P Oph), 1 DROP OPB BID Cyanocobalamin (Vitamin B12), 1 TAB PO QAM Fish Oil ([place]-3), 1 CAP PO QAM Zdjobuisbhc-Dvbuiptekdc-Iqc C- (Glucosamine Chondroitin), 1 CAP PO QAM Ketorolac Tromethamine (Ophth) (Acular Oph), 1 DROP OP BID Loratadine (Claritin), 10 MG PO QAM Lutein (Cvs Lutein), 1 CAP PO QAM Lysine HCl (Lysine), 1 TAB PO QAM Multivitamin (Multivitamin), 1 TAB PO QAM Prednisone (Prednisone), 2.5 MG PO Q2D Sennosides-Docusate Sodium (Stool Softener), 2 TAB PO BID Simvastatin (Zocor), 10 MG PO QPM [Doxycycline], 1 TAB PO QAM [Irbesartan], 75 MG PO QAM [Methotrexate], 1 DOSE INJ WEEKLY Physical Examination Skin: warm/dry, no rash Eyes: normal inspection, EOMI, sclerae normal ENT: normal ENT inspection, pharynx normal Head: normocephalic, atraumatic Neck: supple, no adenopathy, trachea midline Respiratory/Chest: lungs clear, normal breath sounds, no respiratory distress Cardiovascular: regular rate, rhythm, no edema, no murmur Abdomen / GI: normal bowel sounds, non tender Back: normal inspection Extremities: normal inspection, normal range of motion, + pertinent finding Neurologic/Psych: no motor/sensory deficits, alert, normal reflexes, oriented x 3 Addiitonal Comments: pain with rom right knee Diagnosis djd right kne Plan of Treatment plan is to admit and do right tka. plan is then to dc home on day one.
[2017-08-27] VITALS (12 sets, daily range): BP systolic 85–144; BP diastolic 48–82; PULSE 56–69; TEMP 36.3–37; O2SAT 96–100; Ht 162.6 cm; Wt 60.9 kg
[~2017-08-27] VITALS: Ht 162.6 cm; Wt 60.9 kg
[~2017-08-27 09:41] MED LIST changes: +ATROPINE SULFATE 0.1 MG/ML 5ML SYR IV PRN; +CEFAZOLIN 1000MG IV PUSH 5 ML IV SCH; -CEFAZOLIN 1000MG/55 ML D5W 55 ML IV SCH; +EpHEDrine SULFATE INJ 50 MG/ML AMP IV PRN; -EpINEphrine INJ 1MG/ML AMP 1 MG/ML AMP ONE; +FENTANYL CITRATE INJ 50 MCG/1 ML 2 ML VIAL IV PRN; -LACTATED RINGER'S 1000ML 500 ML IV ONE; +LACTATED RINGER'S 1000ML 500 ML IV SCH; +METHOTREXATE INJ; -METROGEL TOP; -NABU500T3 PO; +ONDANSETRON INJ 2 MG/ML 2 ML VIAL IV PRN; -PRED1SUS3 OPR; +ROPIVACAINE 5MG/ML 30 ML 150 MG, BUPIVACAINE 0.5% MPF INJ 30 ML, EpINEphrine HCL INJ 0.... INFIL SCH; -ROPIVACAINE 5MG/ML 30 ML 150 MG, BUPIVACAINE/EPINEPHR 0.5% MPF 30 ML, KETOROLAC TROMETH... INFIL SCH; -[UNRECOGNIZED DRUG - CODE] TOP
[2017-08-27] MEDS ORDERED: MIDAZOLAM HCL 1 MG/ML 2ML VIAL ONE (10:36)
[2017-08-27] MEDS: TRANEXAMIC ACID INJ 1,000 MG in SYRINGE 0 ML IV SCH ×2 (11:06→14:30)
[2017-08-27] MEDS ORDERED: BACITRACIN 50000 UNIT VIAL ONE (11:09)
[2017-08-27] MEDS ORDERED: POVIDONE-IODINE OP SOLN 30 ML BTL ONE (11:09)
[2017-08-27] MEDS ORDERED: ORTHO JOINT ANESTHETIC ONE (11:09)
[2017-08-27] MEDS ORDERED: PROPOFOL IV EMULSION 10 MG/ML 20 ML VIAL IV ONE ×2 (12:08→12:56)
[2017-08-27] MEDS ORDERED: EpHEDrine SULFATE 50MG/5ML SYR ONE (12:08)
--- NOTE | 2017-08-27 12:30 | [facility] Post Operative Brief Note ---
Immediate Operative Summary Operative Date Aug 27, 2017. Pre-Operative Diagnosis Right knee degenerative joint disease Post-Operative Diagnosis Right knee degenerative joint disease Procedure(s) Performed Right Total Knee Arthroplasty- Cemented Surgeon Dr. Hernandez Senior Talent Management Consultant Surgeon(s) Valerie Hernández PA-C Estimated Blood Loss 30 ML Findings Consistent with Post-Op Diagnosis Specimens A: Right knee bone and tissue Drains None Anesthesia Type Spinal Complication(s) none Disposition Accompanied Pt To Recover: no Disposition: Recovery Room / PACU
[2017-08-27] MEDS ORDERED: ONDANSETRON INJ 2 MG/ML 2 ML VIAL IV PRN (12:45)
[2017-08-27] MEDS ORDERED: ALUMINUM/MAGNESIUM/SIMETH (MAALOX MAX) 30 ML UDC PO PRN (12:45)
[2017-08-27] MEDS ORDERED: ZOLPIDEM TARTRATE 5 MG TAB PO PRN (12:45)
[2017-08-27] MEDS ORDERED: OXYCODONE HCL IR 5 MG TAB (IMMEDIATE RELEASE) PO PRN (12:45)
[2017-08-27] MEDS ORDERED: BISACODYL 10 MG SUPP PR PRN (12:45)
[2017-08-27] MEDS ORDERED: MAGNESIUM HYDROXIDE SUSP 30 ML UDC PO PRN (12:45)
[2017-08-27] MEDS ORDERED: SOD PHOSPHATE/SOD BIPHOSPHATE ENEMA 132 ML BTL PR PRN (12:45)
--- NOTE | 2017-08-27 12:47 | [facility] Operative Report ---
Operative Report Operative Date Aug 27, 2017. Pre-Operative Diagnosis Right knee degenerative joint disease Post-Operative Diagnosis Right knee degenerative joint disease Procedure(s) Performed Right Total Knee Arthroplasty- Cemented Surgeon Dr. Hernandez Sharepoint Developer Surgeon(s) Valerie Hernández PA-C Estimated Blood Loss 30 ML Findings as above Specimens A: Right knee bone and tissue Complication(s) None Disposition Recovery Room / PACU Description of Procedure IMPLANTS USED: Clifford triathlon posterior stabilized size 4 cemented femoral component, a size 3 universal baseplate, a size 9 mm PS insert with size 35 all polyethylene patella (For a Clifford knee) INDICATIONS: Mrs. Mayo is a pleasant (female) who has unfortunately failed all forms of conservative measures. Therefore, they have decided to undergo elective surgical intervention. All risks and benefits of the surgery were discussed with the patient and the family in entirety. PROCEDURE: The patient was brought to the operating room and properly identified by myself, anesthesia, and staff. Patient was given a spinal anesthesia and placed on the operating table in the supine position. Tourniquets were applied to the right upper thigh. But the tourniquet was not inflated. The leg was then prepped and draped in usual sterile fashion. We made a standard midline approach over the patella and dissected down through the subcutaneous tissue to identify the capsule and performed a medial capsulotomy with the patella everted and the knee flexed. We then removed the spurs from around the femur and proximal tibia. I then put in a pilot safety inspector hole in the femur, put the IM cutting guide into place in approximately 5 degrees of valgus, and then the distal femoral cut was made. The femur measure to be a size 4. This was then put into place. We made the appropriate cuts and then placed a retractor behind the proximal tibia to retract anteriorly. We then placed the extramedullary cutting guide in place, made sure we had the appropriate varus and valgus alignment and appropriate slope, and the proximal tibia cut was made. It measured to be a size 3. A size 3 guide was then put in place. We used the tibial punch then put the trial components into place. We had very good range of motion, excellent stability, and excellent patella tracking. We removed the trial components and irrigated the wound. We impacted the components in place using antibiotic cement. All excess cement was removed. We then irrigated the wound once more. We closed the capsule with 0 PDS suture, deep dermis with 2-0 Vicryl, and finally the skin with mandy. A sterile dressing was applied. The patient was taken to the recovery room in stable condition. Due to the complex nature of the procedure, the entire surgery was performed with the operational assistance of [the (GIOVANNI)]. The accounting manager assistant controller was under direct supervision, was involved in the actual performance of all aspects of the surgical procedure including hemostasis, tissue retraction and incision, instrument management, patient positioning, and wound closure. I attest to the content of the Intraoperative Record and any orders documented therein. Any exceptions are noted below.
--- NOTE | 2017-08-27 13:42 | Anesthesiology Progress Note ---
Anesthesia Post Op Note Date & Time Aug 27, 2017 at 13:41 Vital Signs Pain Intensity: 0 Vital Signs Past 12 Hours Date Time Temp Pulse Resp B/P (MAP) Pulse Ox O2 Delivery O2 Flow Rate FiO2 08/27/17 13:36 36.4 62 16 110/58 (75) 100 Nasal Cannula 2 08/27/17 13:27 57 16 100 08/27/17 13:27 57 16 08/27/17 13:26 101/55 08/27/17 13:23 66 15 100 08/27/17 13:23 61 18 100 08/27/17 13:21 104/54 08/27/17 13:18 60 12 100 08/27/17 13:18 62 12 08/27/17 13:16 105/53 08/27/17 13:11 98/48 08/27/17 13:08 69 10 100 08/27/17 13:08 36.3 68 16 89/50 (66) 100 Oxymask 10 08/27/17 13:08 62 12 89/50 100 08/27/17 10:37 37.0 65 20 144/82 99 Room Air Notes Mental Status: alert / awake / arousable, participated in evaluation Pt Amnestic to Procedure: Yes Nausea / Vomiting: adequately controlled Pain: adequately controlled Airway Patency, RR, SpO2: stable & adequate BP & HR: stable & adequate Hydration State: stable & adequate Neuraxial Anesthesia: was administered, sensory block is resolving Anesthetic Complications: no major complications apparent
[2017-08-27] MEDS ORDERED: TRANEXAMIC ACID INJ 1,000 MG in SODIUM CHLORIDE 0.9% 100ML 100 ML IV SCH (19:00)
[2017-08-27] MEDS: CEFAZOLIN IV 2,000 MG in SYRINGE 0 ML IV SCH (20:34)
[2017-08-27] MEDS: ACETAMINOPHEN 500 MG TAB PO SCH (20:36)
[2017-08-27] MEDS: ASPIRIN 81 MG ECTAB PO SCH (20:37)
[2017-08-27] MEDS: DOCUSATE SODIUM 100 MG CAP PO SCH (20:37)
[2017-08-27] MEDS: BRIMONIDINE TARTRATE 0.2% 5ML OPB SCH (20:46)
[2017-08-27] MEDS: KETOROLAC 0.5% OP SOLN 3 ML BTL OP SCH (20:46)
[2017-08-27] MEDS: SODIUM CHLORIDE 0.9% 1000ML 1,000 ML IV SCH ×2 (20:48→23:01)
[2017-08-27] MEDS ORDERED: SIMVASTATIN 10 MG TAB PO SCH (21:00)
[2017-08-27] MEDS ORDERED: SENNA 8.6 MG TAB PO SCH (21:00)
[2017-08-28 03:10] VITALS: BP 104/63; PULSE 64; TEMP 36.7; O2SAT 97
[2017-08-28] MEDS: ACETAMINOPHEN 500 MG TAB PO SCH (03:47)
[2017-08-28] MEDS: CEFAZOLIN IV 2,000 MG in SYRINGE 0 ML IV SCH (03:47)
[2017-08-28 07:00] VITALS: BP 95/96; PULSE 53; TEMP 36.6; O2SAT 99
[2017-08-28 07:09] LABS: HEMATOCRIT 28.3 % (37-47); HEMOGLOBIN 9.4 g/dL (12.0-16.0); MEAN CELL VOLUME 91.9 fL (80-100); MEAN CORPUSCULAR HEMOGLOBIN 30.5 pg (25-34); MEAN CORPUSCULAR HGB CONC 33.2 g/dl (32-36); MEAN PLATELET VOLUME 9.5 fL (7.4-10.4); PLATELET COUNT 182 K/uL (130-400); RED CELL DISTRIBUTION WIDTH CV 14.4 % (11.5-14.5); WHITE BLOOD COUNT 10.43 K/uL (4.8-10.8)
[2017-08-28] MEDS ORDERED: DEXAMETHASONE INJ 10 MG in SYRINGE 0 ML IV SCH (07:30)
--- NOTE | 2017-08-28 07:37 | Anesthesiology Progress Note ---
Anesthesia Post Op Note Date & Time Aug 28, 2017 at 07:36 Vital Signs Pain Intensity: 1.0 Vital Signs Past 12 Hours Date Time Temp Pulse Resp B/P (MAP) Pulse Ox O2 Delivery O2 Flow Rate FiO2 08/28/17 07:00 36.6 53 18 95/96 (96) 99 Room Air 08/28/17 03:10 36.7 64 16 104/63 (77) 97 Room Air 08/27/17 23:16 Room Air 08/27/17 23:16 99/60 (73) 08/27/17 23:07 91/49 (63) 08/27/17 23:05 36.7 65 16 89/48 (62) 96 Room Air 08/27/17 21:00 96 Room Air 08/27/17 20:40 36.6 65 100/51 (67) 08/27/17 20:35 36.5 69 16 85/49 (61) 96 Room Air Notes Mental Status: alert / awake / arousable, participated in evaluation Pt Amnestic to Procedure: Yes Nausea / Vomiting: adequately controlled Pain: adequately controlled Airway Patency, RR, SpO2: stable & adequate BP & HR: stable & adequate Hydration State: stable & adequate Neuraxial Anesthesia: was administered, sensory block resolved Anesthetic Complications: no major complications apparent
[2017-08-28] MEDS: KETOROLAC 0.5% OP SOLN 3 ML BTL OP SCH (08:26)
[2017-08-28] MEDS: BRIMONIDINE TARTRATE 0.2% 5ML OPB SCH (08:26)
[2017-08-28] MEDS: DOCUSATE SODIUM 100 MG CAP PO SCH (08:27)
[2017-08-28] MEDS: ASPIRIN 81 MG ECTAB PO SCH (08:28)
[2017-08-28] MEDS: SODIUM CHLORIDE 0.9% 1000ML 1,000 ML IV SCH (08:34)
--- NOTE | 2017-08-28 08:46 | Orthopedic Progress Note ---
Orthopedic Progress Note Date of Service Aug 28, 2017. Subjective Post OP Day: 1 Reports: feeling well, Denies: complaints Additional Notes: No complaints presently. Hoping to go home today. Objective calves soft nontender, N/V intact, dressing C/D/I, A&O x3, toes mobile Date Time Temp Pulse Resp B/P (MAP) Pulse Ox O2 Delivery O2 Flow Rate FiO2 08/28/17 07:00 36.6 53 18 95/96 (96) 99 Room Air 08/28/17 03:10 36.7 64 16 104/63 (77) 97 Room Air 08/27/17 23:16 Room Air 08/27/17 23:16 99/60 (73) 08/27/17 23:07 91/49 (63) 08/27/17 23:05 36.7 65 16 89/48 (62) 96 Room Air 08/27/17 21:00 96 Room Air 08/27/17 20:40 36.6 65 100/51 (67) 08/27/17 20:35 36.5 69 16 85/49 (61) 96 Room Air 08/27/17 17:00 36.3 63 16 91/52 (65) 99 Nasal Cannula 2.0 08/27/17 16:00 36.3 64 16 92/54 (67) 100 Nasal Cannula 2.0 08/27/17 15:02 36.4 61 19 104/65 (78) 100 Nasal Cannula 2.0 08/27/17 14:35 Nasal Cannula 08/27/17 14:29 36.3 57 18 111/54 (73) 100 Nasal Cannula 2.0 08/27/17 14:00 36.4 56 20 112/65 (81) 100 Nasal Cannula 2.0 08/27/17 14:00 100 Nasal Cannula 2.0 08/27/17 14:00 100 Nasal Cannula 2.0 08/27/17 13:46 58 16 100 08/27/17 13:46 58 16 08/27/17 13:41 110/56 08/27/17 13:38 56 15 100 08/27/17 13:38 57 18 100 08/27/17 13:36 110/58 08/27/17 13:36 36.4 62 16 110/58 (75) 100 Nasal Cannula 2 08/27/17 13:33 59 14 100 08/27/17 13:33 58 14 08/27/17 13:31 111/55 08/27/17 13:27 57 16 100 08/27/17 13:27 57 16 08/27/17 13:26 101/55 08/27/17 13:23 66 15 100 08/27/17 13:23 61 18 100 08/27/17 13:21 104/54 08/27/17 13:18 60 12 100 08/27/17 13:18 62 12 08/27/17 13:16 105/53 08/27/17 13:11 98/48 08/27/17 13:08 69 10 100 08/27/17 13:08 36.3 68 16 89/50 (66) 100 Oxymask 10 08/27/17 13:08 62 12 89/50 100 08/27/17 10:37 37.0 65 20 144/82 99 Room Air Laboratory Results 24 Hours: Test 08/28/17 06:38 Hematocrit 28.3 % Hemoglobin 9.4 g/dL Assessment & Plan Assessment: POD 1 s/p Right TKA Plan: PT/OT Plan for HHPT Hopeful for dc today Inhouse Planning Pain Management: PO Tylenol, Oxy IR DVT Prophylaxis: TEDs, SCDs, ASA Discharge Planning Discharge Planning: home with home health
[2017-08-28] MEDS ORDERED: ACET-24 PO (08:57)
[2017-08-28] MEDS ORDERED: SENN-61 PO (08:57)
[2017-08-28] MEDS ORDERED: ASPI81TA28 PO (08:57)
[2017-08-28] MEDS ORDERED: LORATADINE 10 MG TAB PO SCH (09:00)
[2017-08-28] MEDS ORDERED: IRBESARTAN 75 MG TAB PO SCH (09:00)
--- NOTE | 2017-08-28 09:03 | Discharge Instructions ---
Discharge Instructions Date of Service Aug 28, 2017. Admission Reason for Admission: Right Knee Osteoarthritis Discharge Discharge Diagnosis / Problem: Right knee djd Discharge Goals Goal(s): Decrease discomfort, Improve function, Increase independence Activity Recommendations Activity Limitations: per Instructions/Follow-up section Weightbearing Status: Right weightbearing (as tolerated) . Instructions / Follow-Up Instructions / Follow-Up Dr. Hernandez Total Knee Replacement Discharge Instructions DERMABOND Prineo- This is a mesh tape dressing that is covered with glue. It should remain in place until the incision is properly healed, usually 10-14 days. This dressing is designed to naturally slough off. You may trim the excess mesh tape as it peels off. Incision may be briefly wet in a shower. Dry immediately by blotting with a clean, dry towel. Do not bath or swim until instructed by your doctor. Do not scratch, rub, or pick at the dressing. Do not apply any topical ointments or lotions until dressing is completely removed and/or instructed by your doctor. There may be a small piece of suture material at one end of your incision. Do not pull or trim this. If it is bothersome or catching on clothing, you may cover it with a band-aid. ICE and ELEVATE constantly. If a drain is in place, it is removed when less than 10cc for 2 consecutive 8 hr shifts. IF KIMBERLY / Prevena device in place, please see the instruction sheet. Also, every Home Nursing Agency, Home PT, and Rehab is aware how this works. If your home nurse or therapist says they don't know want this is, have them call you [facility] or the analytic manager right away, it is meant to protect and help your incision heal faster. Please read the Do's and Don'ts sheet. This paper and the Do's and Don'ts are the most important. The rest of your paperwork from hospital is redundant and or confusing. This is the info I want you to take to heart. I typically give you 5 prescriptions. Some are Eprescribed to your pharmacy already. They are: 1. Oxycodone or some form of a narcotic pain pill. Please take. Most important. 2. Aspirin - this is for blood clot prevention, please take. You may have them prescribe something stronger than aspirin, if so, you won't have a script for aspirin daily. 3. Tylenol 4. Zofran-this is for nausea, take if you need. 5. Celebrex-helps with inflammation, if not covered by insurance, then use ibuprofen 600 mg, 2 to 3 times a day. If any problems or concerns, please call [facility] (Or Maria A Saha if she is your coordinator) FIRST. DO not go to the ER unless directed by your [facility] Physician or it's an absolute emergency. Our phone numbers are located all throughout the your [facility] packet. Current Hospital Diet Patient's current hospital diet: Regular Diet Discharge Diet Recommended Diet: Regular Diet Procedures Procedures Performed: Right Total Knee Arthroplasty- Cemented Pending Studies Studies pending at discharge: no Medical Emergencies . Who to Call and When: Medical Emergencies: If at any time you feel your situation is an emergency, please call 911 immediately. . Non-Emergent Contact Non-Emergency issues call your: Surgeon Call Non-Emergent contact if: temperature is above 101.5, your pain is not controlled, your pain is worsening, wound has increased drainage, wound has increased redness . "Provider Documentation" section prepared by Pablo Lindsay. . VTE Core Measure Inpt VTE Proph given/why not?: Other Anticoagulation, T.E.D. Stockings, SCD's [place] Drug Monitoring Program Search Results: patient reviewed within database, no issues identified
[2017-08-28] MEDS ORDERED: RXC5 PO (09:04)
[2017-08-28 10:30] VITALS: BP 95/96; PULSE 53; TEMP 36.6; O2SAT 99
== END 2017-08-28 11:44 | disposition home health service (06) | DRG 470 ==
LOC: C.ACU 09:41 → C.3E 10:55 → ENRESERV 13:18
PROVIDERS: ADMIT Orthopaedic Surgery; ATTEND Orthopaedic Surgery
PROC: 0SRC0J9 Replacement of Right Knee Joint with Synthetic Substitute, Cemented, Open Approach (ICD-10-PCS; principal; 2017-08-27 12:00)
DX: M17.11 Unilateral primary osteoarthritis, right knee (principal); I10 Essential (primary) hypertension; E78.5 Hyperlipidemia, unspecified; Z86.711 Personal history of pulmonary embolism; Z96.652 Presence of left artificial knee joint; Z79.82 Long term (current) use of aspirin; Z79.52 Long term (current) use of systemic steroids; Z79.899 Other long term (current) drug therapy